=== PATIENT | female | born 1925 | race Caucasian/White ===

== ENCOUNTER 2016-04-18 23:06 | Emergency (ER) | payer OTHER ==
[2016-04-18 23:19] VITALS: TEMP 97.7; BMI 24.2
[2016-04-19] MEDS ORDERED: MECLIZINE HCL 25 MG TABLET (FP) PO STA (00:09)
--- NOTE | 2016-04-19 00:09 | PDOC ---
History of Present Illness - General History Source: Patient Exam Limitations: No Limitations - History of Present Illness Initial Comments: 04/19/16 00:21 The patient is a 89 year old female with significant past medical history of hypertension who presents to the ED from home with 2 days of lightheadedness and dizziness. Patient describes her dizziness as the room is spinning. She denies any headache, diaphoresis, SOB, chest pain, shoulder pain, arm pain, jaw pain, nausea, and vomiting. Patient also denies falling or syncopal episode. She denies any sick contacts or recent travels. As per daughter, at bedside, patient is prescribed 160mg of valsartan, but instead the patient cuts it in half and takes 80 mg. The patient denies fever, chills, cough, abdominal pain and diarrhea. Allergies: niacin Social History: No alcohol, tobacco, or drug use reported. Past Surgical History: cholecystectomy PCP: Dr. Jennifer Raymond <Pamela Lyons - Last Filed: 04/19/16 01:24> - General History Source: Patient <Miko Valdes - Last Filed: 04/19/16 04:03> - General Chief Complaint: Blood Pressure Problem Stated Complaint: BLOOD PRESSURE PROBLEM Time Seen by Provider: 04/19/16 00:05 Past History <Pamela Lyons - Last Filed: 04/19/16 01:24> - Past Medical History HTN: Yes - Surgical History Cholecystectomy: Yes - Psycho/Social/Smoking Cessation Hx Suicidal Ideation: No Smoking History: Never smoked Have you smoked in the past 12 months: No Information on smoking cessation initiated: No Hx Alcohol Use: No Drug/Substance Use Hx: No <Miko Valdes - Last Filed: 04/19/16 04:03> - Past Medical History Allergies/Adverse Reactions: Allergies Allergy/AdvReac Type Severity Reaction Status Date / Time niacin Allergy Verified 04/18/16 23:15 Home Medications: Ambulatory Orders Valsartan [Diovan] 80 mg PO DAILY 04/18/16 Review of Systems - Review of Systems Able to Perform ROS?: Yes Comments:: 04/19/16 00:21 CONSTITUTIONAL: Absent: fever, chills, diaphoresis, generalized weakness, malaise, loss of appetite HEENT: Absent: rhinorrhea, nasal congestion, throat pain, throat swelling, difficulty swallowing, mouth swelling, ear pain, eye pain, visual Changes CARDIOVASCULAR: +lightheadedness Absent: chest pain, syncope, palpitations, irregular heart rate , peripheral edema RESPIRATORY: Absent: cough, shortness of breath, dyspnea with exertion, orthopnea, wheezing, stridor, hemoptysis GASTROINTESTINAL: Absent: abdominal pain, abdominal distension, nausea, vomiting, diarrhea, constipation, melena, hematochezia GENITOURINARY: Absent: dysuria, frequency, urgency, hesitancy, hematuria, flank pain, genital pain MUSCULOSKELETAL: Absent: myalgia, arthralgia, joint swelling SKIN: Absent: rash, itching, pallor NEUROLOGIC: +dizziness Absent: headache, focal weakness or paresthesias, unsteady gait, seizure, mental status changes, bladder or bowel incontinence <Pamela Lyons - Last Filed: 04/19/16 01:24> *Physical Exam - Vital Signs Last Vital Signs Temp Pulse Resp BP Pulse Ox 97.7 F 63 14 169/96 97 04/18/16 23:16 04/19/16 00:02 04/18/16 23:16 04/19/16 00:02 04/18/16 23:16 - Physical Exam Comments: 04/19/16 00:21 GENERAL: Well developed, well nourished. Awake and alert. No acute distress. HEENT: Normocephalic, atraumatic. PERRLA, EOMI. No conjunctival pallor. Sclera are non- icteric. Moist mucous membranes. Oropharynx is clear. NECK: Supple. Full ROM. No JVD. Carotid pulses 2+ and symmetric, without bruits. No thyromegaly. No lymphadenopathy. CARDIOVASCULAR: Regular rate and rhythm. No murmurs, rubs, or gallops. Distal pulses are 2+ and symmetric. PULMONARY: No evidence of respiratory distress. Lungs clear to auscultation bilaterally. No wheezing, rales or rhonchi. ABDOMINAL: Soft. Non-tender. Non-distended. No rebound or guarding. No organomegaly. Normoactive bowel sounds. MUSCULOSKELETAL Normal range of motion at all joints. No bony deformities or tenderness. No CVA tenderness. EXTREMITIES: No cyanosis. No clubbing. No edema. No calf tenderness. SKIN: Warm and dry. Normal capillary refill. No rashes. No jaundice. NEUROLOGICAL: Alert, awake, appropriate. Cranial nerves 2-12 intact. Moving all extremities. No gross focal neurological deficits. PSYCHIATRIC: Cooperative. Good eye contact. Appropriate mood and affect. <Pamela Lyons - Last Filed: 04/19/16 01:24> - Vital Signs Last Vital Signs Temp Pulse Resp BP Pulse Ox 97.7 F 63 14 169/96 97 04/18/16 23:16 04/19/16 00:02 04/18/16 23:16 04/19/16 00:02 04/18/16 23:16 <Miko Valdes - Last Filed: 04/19/16 04:03> ED Treatment Course - RADIOLOGY Radiograph Interpretation: 04/19/16 01:24 EXAM: CT brain without contrast Reviewed by Imaging radiation officer: FINDINGS: Age-appropriate involutional changes. Chronic microvascular changes in the cerebral white matter. 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 Correlate with symptoms. If prior scans are available I can perform a comparative interpretation to help determine if this infarct is recent or not. No bleed. No visible mass. No shift or herniation. - Medications Given in the ED: ED Medications Discontinued Medications Generic Name Dose Route Start Last Admin Trade Name Freq PRN Reason Stop Dose Admin Meclizine HCl 25 mg 04/19/16 00:09 04/19/16 00:20 Antivert - PO 04/19/16 00:10 25 mg ONCE STA Administration <Pamela Lyons - Last Filed: 04/19/16 01:24> - LABORATORY CBC & Chemistry Diagram: 04/19/16 01:30 04/19/16 01:50 <Miko Valdes - Last Filed: 04/19/16 04:03> Medical Decision Making - Medical Decision Making 04/19/16 04:02 Dr. Valdes: The scribe's documentation has been prepared under my direction and personally reviewed by me in its entirery. I confirm that the note above accurately reflects all work, treatment, procedures, and medical decision making performed by me. Blood pressure has improved with therapy here in the department. Patient will be discharged follow up with her primary care to discuss continuing use of medication or medication should be changed. <Miko Valdes - Last Filed: 04/19/16 04:03> *DC/Admit/Observation/Transfer - Attestations Scribe Attestion: 04/19/16 00:21 Documentation prepared by Pamela Lyons, acting as medical i d sales for Miko Valdes MD <Pamela yLons - Last Filed: 04/19/16 01:24> - Discharge Dispostion Admit: No <Miko Valdes - Last Filed: 04/19/16 04:03> Diagnosis at time of Disposition: Hypertension Qualifiers: Hypertension type: essential hypertension Qualified Code(s): I10 - Essential ( primary) hypertension - Discharge Dispostion Disposition: HOME Condition at time of disposition: Improved - Referrals Referrals: Jennifer Raymond [Primary Care Provider] - - Patient Instructions Printed Discharge Instructions: DI for High Blood Pressure, How to Monitor Your Blood Pressure at Home
[2016-04-19] MEDS ORDERED: ENALAPRILAT DIHYDRATE 1.25 MG/1 ML VIAL IVPB ONE ×2 (01:30→03:19)
[2016-04-19 02:06] LABS: BASOPHIL 0.6 % (0-2.0); EOSINOPHIL 3.4 % (0-4.5); MCH 29.9 pg (25.7-33.7); MCHC 33.2 g/dl (32.0-36.0); MEAN PLT VOLUME 7.5 fl (7.5-11.1); NEUTROPHILS 67.1 % (42.8-82.8); PLATELET COUNT 127 K/MM3 (134-434); RDW 14.9 % (11.6-15.6); WHITE BLOOD COUNT 4.8 K/mm3 (4.0-10.0)
[2016-04-19 02:31] LABS: ALBUMIN 3.2 g/dl (3.4-5.0); ANION GAP 7 (8-16); BILIRUBIN,TOTAL 0.4 mg/dL (0.2-1.0); CALCIUM 8.4 mg/dL (8.5-10.1); CO2 29 mmol/L (21-32); CREATININE 0.8 mg/dL (0.55-1.02); GLUCOSE,RANDOM 96 mg/dL (74-106); SGOT/AST 19 U/L (15-37); SGPT/ALT 17 U/L (12-78); TOT PROT 6.3 g/dl (6.4-8.2)
[2016-04-19 02:34] LABS: ALK PHOS 81 U/L (45-117); TROPONIN I < 0.02 ng/ml (0.00-0.05)
[2016-04-19 03:19] VITALS: PULSE 82
[2016-04-19] MEDS ORDERED: ENALAPRILAT DIHYDRATE 2.5 MG/2 ML VIAL IVPB ONE (03:21)
[2016-04-19] MEDS ORDERED: hydrALAZINE HCL 20 MG/ML VIAL IVPUSH ONE (03:22)
[2016-04-19] MEDS ORDERED: hydrALAZINE HCL 20 MG/ML VIAL ONE (03:23)
[2016-04-19 03:48] VITALS: BP 158/76
== END 2016-04-19 04:11 | disposition home or self-care (01) ==
LOC: JER 23:06
PROC: 3E033GC Introduction of Other Therapeutic Substance into Peripheral Vein, Percutaneous Approach (ICD-10-PCS; principal; 2016-04-18)
DX: I10 Essential (primary) hypertension (principal)
CPT/HCPCS: 36415; 70450-TC; 80053; 82550; 84484; 85025; 96374; 96375; 99282-25

== ENCOUNTER 2016-11-16 14:30 | Emergency (ER) | payer OTHER ==
[2016-11-16 15:00] VITALS: TEMP 98.2; BMI 19.8
--- NOTE | 2016-11-16 16:19 | PDOC ---
History of Present Illness - General Chief Complaint: Blood Pressure Problem Stated Complaint: HTN Time Seen by Provider: 11/16/16 15:38 - History of Present Illness Initial Comments: 11/16/16 16:12 89F w/ hx of HTN on valsartan presenting with lightheadedness. Pt reports episodes of lightheadedness upon standing up for several months, most recently today. She went to her PCP (Dr. Raymond) several days ago, and the pt was noted to have a BP in the 170s/90s. Her PCP did not change her BP meds in the last several months or during the last appointment. 11/16/16 16:19 11/16/16 16:23 Past History - Past Medical History Allergies/Adverse Reactions: Allergies Allergy/AdvReac Type Severity Reaction Status Date / Time niacin Allergy Verified 11/16/16 14:50 Home Medications: Ambulatory Orders Valsartan [Diovan] 160 mg PO DAILY 04/18/16 Zolpidem Tartrate [Ambien] 10 mg PO DAILY 11/16/16 HTN: Yes Comment:: 11/16/16 16:19 PMH: HTN Meds: valsartan 160mg qd Allergies: niacin social Hx: denies toxic habits - Surgical History Appendectomy: Yes Cholecystectomy: Yes - Immunization History Immunization Up to Date: Yes - Psycho/Social/Smoking Cessation Hx Suicidal Ideation: No Smoking History: Never smoked Have you smoked in the past 12 months: No Information on smoking cessation initiated: No Hx Alcohol Use: No Drug/Substance Use Hx: No Substance Use Type: None Review of Systems - Review of Systems Comments:: 11/16/16 16:20 GENERAL: No fever, chills, night sweats, or weakness. HEAD, EYES, EARS, NOSE AND THROAT: +blurry vision, no ear pain, or sore throat CARDIOVASCULAR: No chest pain or palpitations RESPIRATORY: No cough, wheezing, or hemoptysis. GASTROINTESTINAL: No nausea, vomiting, diarrhea, constipation, or blood in the stool. GENITOURINARY: No dysuria, frequency, or urgency MUSCULOSKELETAL: No joint or muscle swelling or pain. SKIN: No rashes or pruritis ENDOCRINE: No increased thirst. No abnormal weight change NEUROLOGIC: + headache, + dizziness, no loss of consciousness, or change in strength/sensation. *Physical Exam - Vital Signs Last Vital Signs Temp Pulse Resp BP Pulse Ox 98.2 F 56 L 17 181/94 93 L 11/16/16 14:51 11/16/16 14:51 11/16/16 14:51 11/16/16 14:51 11/16/16 14:51 - Physical Exam Comments: 11/16/16 16:22 GENERAL: Awake, alert, and fully oriented, in no acute distress HEAD: normocephalic, atraumatic HEENT: PERRLA, EOMI, sclera anicteric, conjunctiva clear, hearing grossly normal , nares patent, oropharynx clear without exudate, moist mucosa NECK: Normal ROM, supple, no lymphadenopathy, JVD, or masses HEART: Regular rate and rhythm, normal S1 and S2, no murmurs, rubs or gallops, peripheral pulses normal and equal bilaterally. LUNGS: CTAB, no wheezing, no rales ABDOMEN: Soft, nontender, nondistended, normoactive bowel sounds. No guarding, no rebound. No masses EXTREMITIES: Normal range of motion, 1+ edema in lower extremities. SKIN: Warm, dry, no rashes or lesions noted. NEUROLOGICAL: Cranial nerves II through XII grossly intact. Normal speech, no focal sensorimotor deficits ED Treatment Course - LABORATORY CBC & Chemistry Diagram: 11/16/16 16:50 11/16/16 16:50 Medical Decision Making - Medical Decision Making 11/16/16 16:23 89F w/ hx of HTN on valsartan presenting with lightheadedness for past several months. CBC: platelets 130 CMP: glucose of 67, K of 5.1 UA: 1+ blood, no evidence of UTI CXR: no acute pulmonary or cardiac pathology EKG: sinus bradycardia Repeat BP still elevated to 190/90, so given 80 of valsartan. 11/16/16 18:57 *DC/Admit/Observation/Transfer Diagnosis at time of Disposition: Pre-syncope - Discharge Dispostion Disposition: HOME Condition at time of disposition: Stable Admit: No - Patient Instructions Additional Instructions: Labs and imaging showed that your lightheadedness was not due to any cardiac, pulmonary, or electrolyte problem. Please follow up with your PCP within 1 week to adjust your BP medications. If you experience any concerning symptoms such as severe headache, chest pain, SOB, nausea and vomiting, return to the ED.
[2016-11-16 17:04] LABS: BASOPHIL 0.7 % (0-2.0); EOSINOPHIL 3.2 % (0-4.5); MCHC 33.6 g/dl (32.0-36.0); MEAN CELL VOLUME 92.2 fl (80-96); NEUTROPHILS 59.7 % (42.8-82.8); PLATELET COUNT 134 K/MM3 (134-434); RDW 14.9 % (11.6-15.6)
--- NOTE | 2016-11-16 17:04 | PDOC ---
Attending Attestation - Resident Resident Name: Anjel Grider - ED Attending Attestation I have performed the following: I have examined & evaluated the patient, The case was reviewed & discussed with the resident, I agree w/resident's findings & plan, Exceptions are as noted - HPI HPI: 11/16/16 17:00 Agree with the resident's HPI as documented in the electronic medical record. - Physicial Exam PE: 11/16/16 17:00 Agree with the resident's physical examination as documented in the electronic medical record. - Medical Decision Making 11/16/16 17:01 89-year-old female with history of hypertension presents the emergency department with elevated blood pressure and feeling lightheaded today. Differential diagnosis includes but is not limited to: Poorly controlled hypertension, atypical presentation of ACS, near syncope, electrolyte abnormality, anemia, toxic/metabolic derangement, infection. Plan: 1. EKGshows sinus bradycardia at 56 bpm with normal axis, intervals and no acute ST segment changes 2. Chest x-ray 3. Labs 4. Urine analysis 5. Observe and reevaluate
[2016-11-16 17:27] LABS: URINE APPEARANCE CLEAR; URINE BILIRUBIN NEGATIVE (NEGATIVE); URINE BLOOD 1+ (NEGATIVE); URINE COLOR STRAW; URINE GLUCOSE (UA) NEGATIVE (NEGATIVE); URINE KETONE NEGATIVE (NEGATIVE); URINE LEUK ESTERASE NEGATIVE (NEGATIVE); URINE NITRITE NEGATIVE (NEGATIVE); URINE PROTEIN NEGATIVE (NEGATIVE); URINE UROBILINOGEN NEGATIVE mg/dL (0.2-1.0)
[2016-11-16 17:30] LABS: ALBUMIN 3.4 g/dl (3.4-5.0); ANION GAP 5 (8-16); CALCIUM 8.8 mg/dL (8.5-10.1); CO2 33 mmol/L (21-32); CREATININE 0.7 mg/dL (0.55-1.02); GLUCOSE,RANDOM 67 mg/dL (74-106); SGOT/AST 21 U/L (15-37)
[2016-11-16 17:32] LABS: URINE BACTERIA RARE /hpf (NONE SEEN); URINE RBC 1 /hpf (0-3); URINE WBC 1 /hpf (3-5)
[2016-11-16 17:39] LABS: ALK PHOS 78 U/L (45-117); BILIRUBIN,TOTAL 0.5 mg/dL (0.2-1.0); SGPT/ALT 19 U/L (12-78); TOT PROT 6.6 g/dl (6.4-8.2)
[2016-11-16] MEDS ORDERED: VALSARTAN 80 MG TABLET (UD) PO ONE (18:56)
--- NOTE | 2016-11-16 19:28 | PDOC ---
*Physical Exam - Vital Signs Last Vital Signs Temp Pulse Resp BP Pulse Ox 98.2 F 61 17 191/99 93 L 11/16/16 18:53 11/16/16 18:52 11/16/16 18:52 11/16/16 18:52 11/16/16 18:52 ED Treatment Course - LABORATORY CBC & Chemistry Diagram: 11/16/16 16:50 11/16/16 16:50 - ADDITIONAL ORDERS Additional order review: Laboratory Results 11/16/16 11/16/16 16:58 16:50 Sodium 143 Potassium 5.1 D Chloride 105 Carbon Dioxide 33 H Anion Gap 5 L BUN 17 Creatinine 0.7 Creat Clearance w eGFR > 60 Random Glucose 67 L D Calcium 8.8 Total Bilirubin 0.5 D AST 21 ALT 19 Alkaline Phosphatase 78 Total Protein 6.6 Albumin 3.4 Urine Color Straw Urine Appearance Clear Urine pH 8.0 Urine Protein Negative Urine Glucose (UA) Negative Urine Ketones Negative Urine Blood 1+ H Urine Nitrite Negative Urine Bilirubin Negative Urine Urobilinogen Negative Ur Leukocyte Esterase Negative Urine RBC 1 Urine WBC 1 Ur Epithelial Cells Rare Urine Bacteria Rare 11/16/16 16:50 RBC 3.98 MCV 92.2 MCHC 33.6 RDW 14.9 MPV 8.0 Neutrophils % 59.7 Lymphocytes % 27.2 D Monocytes % 9.2 Eosinophils % 3.2 Basophils % 0.7 Medical Decision Making - Medical Decision Making Patient was signed out to me in stable condition with cardiac enzymes pending. 11/16/16 19:25 Cardiac enzymes undetectable and patient asymptomatic but blood pressures still elevated with systolics 190-200. Cr. 0.7 and completely asymptomatic so high suspicion of her baseline HTN being extreme. Will give Hydralizine 15 mg IV and recheck blood pressure. 11/16/16 21:19 Patient tolerated 15 IV well. Will recheck BP in 15 minutes. 11/16/16 21:36 Pressures 157/97, will recheck in 15 minutes. 11/16/16 21:50 Pressure repeated was 146/70s patient still asymptomatic. HR slightly elevated to 80s. Patient will follow up with Dr. Raymond tomorrow. 11/16/16 22:21 *DC/Admit/Observation/Transfer Diagnosis at time of Disposition: Pre-syncope, Asymptomatic hypertensive urgency - Discharge Dispostion Disposition: HOME Condition at time of disposition: Stable - Referrals Referrals: Jennifer Raymond [Primary Care Provider] - - Patient Instructions Additional Instructions: Labs and imaging showed that your lightheadedness was not due to any cardiac, pulmonary, or electrolyte problem. Please follow up with your PCP within tomorrow to adjust your BP medications. We gave hydralizine ( another bp medication) here to help lower yoour BP a little more because ti was still high. If you experience any concerning symptoms such as severe headache, chest pain, SOB, nausea and vomiting, return to the ED. - Post Discharge Activity - Attestations Physician Attestion: Dr. Hector Alonzo attest this note. 11/16/16 22:21
[2016-11-16 19:39] LABS: CPK 49 IU/L (26-192); TROPONIN I < 0.02 ng/ml (0.00-0.05)
[2016-11-16] MEDS ORDERED: VALSARTAN 80 MG TABLET (UD) ONE (19:39)
[2016-11-16] MEDS ORDERED: hydrALAZINE HCL 20 MG/ML VIAL ONE (21:25)
[2016-11-16] MEDS ORDERED: hydrALAZINE HCL 20 MG/ML VIAL IVPUSH ONE ×2 (21:25→22:25)
[2016-11-16 21:44] VITALS: PULSE 65
[2016-11-16 22:17] VITALS: BP 155/97
--- NOTE | 2016-11-17 12:30 | EKG ---
Test Reason : Blood Pressure : / mmHG Vent. Rate : 051 BPM Atrial Rate : 051 BPM P-R Int : 150 ms QRS Dur : 074 ms QT Int : 432 ms P-R-T Axes : 028 -22 046 degrees QTc Int : 398 ms SINUS BRADYCARDIA MODERATE VOLTAGE CRITERIA FOR LVH, MAY BE NORMAL VARIANT WHEN COMPARED WITH ECG OF 16-NOV-2016 14:50, NO SIGNIFICANT CHANGE WAS FOUND Confirmed by MD POORNIMA, RUDOLPH ([id number]) on 11/17/2016 12:30:05 PM Referred By: Confirmed By:RUDOLPH NOGUERA MD
--- NOTE | 2016-11-20 19:06 | EKG ---
Test Reason : Blood Pressure : / mmHG Vent. Rate : 051 BPM Atrial Rate : 051 BPM P-R Int : 150 ms QRS Dur : 080 ms QT Int : 440 ms P-R-T Axes : 007 -22 044 degrees QTc Int : 405 ms SINUS BRADYCARDIA MODERATE VOLTAGE CRITERIA FOR LVH, MAY BE NORMAL VARIANT BORDERLINE ECG NO PREVIOUS ECGS AVAILABLE Confirmed by SILVA PINTO MD ([id number]) on 11/20/2016 7:05:56 PM Referred By: Confirmed By:SILVA PINTO MD
== END 2016-11-16 22:58 | disposition home or self-care (01) ==
LOC: JER 14:30
PROC: 3E033GC Introduction of Other Therapeutic Substance into Peripheral Vein, Percutaneous Approach (ICD-10-PCS; principal; 2016-11-16)
DX: R55 Syncope and collapse (principal)
CPT/HCPCS: 36415; 71010-TC; 80053; 81003; 81015; 84484; 85025; 93005; 93010; 99284-25

== ENCOUNTER 2017-09-21 12:17 | Observation (INO) | payer OTHER ==
--- NOTE | 2017-09-21 12:59 | PDOC ---
Attending Attestation - HPI HPI: 09/21/17 13:23 The patient is a 89 year old female accompanied with her daughter, with a significant past medical history of hypertension, who presents to the emergency department for evaluation of left hip pain s/p unwitnessed fall.The patient reports moderate left hip pain, left elbow pain, and posterior head pain. As per EMS, the patients daughter found the patient on the floor at 8am. The patient denies loss of consciousness. The patient reports falling on her left side as she was turning. She states she was able to ambulate after the fall, but has difficulty bearing weight. As per EMS, the patient was tachycardic at 135 bpm. The patient denies use of blood thinners, neck pain, chest pain, shortness of breath, fever, chills, nausea, vomiting, and any urinary/bowel symptoms. Allergies: Niacin Social History: No reported alcohol, cigarette, or drug use. Surgical History: Appendectomy, cholecystectomy, and . <Shauna Hoyt - Last Filed: 09/21/17 13:23> - Resident Resident Name: Hi Crisostomo - ED Attending Attestation I have performed the following: I have examined & evaluated the patient, The case was reviewed & discussed with the resident, I agree w/resident's findings & plan, Exceptions are as noted - Physicial Exam PE: GENERAL: Awake, alert, and fully oriented, in no acute distress HEAD: Small occipital hematoma. EYES: PERRLA, EOMI, sclera anicteric, conjunctiva clear ENT: Auricles normal inspection, hearing grossly normal, nares patent, oropharynx clear without exudates. Moist mucosa NECK: Normal ROM, supple, no lymphadenopathy, JVD, or masses LUNGS: Breath sounds equal, clear to auscultation bilaterally. No wheezes, and no crackles HEART: Regular rate and rhythm, normal S1 and S2, no murmurs, rubs or gallops ABDOMEN: Soft, nontender, normoactive bowel sounds. No guarding, no rebound. No masses EXTREMITIES: +Tenderness to L hip, +FROM. Remainder of extremities with normal range of motion, no edema. No clubbing or cyanosis. No cords, erythema, or tenderness NEUROLOGICAL: Cranial nerves II through XII grossly intact. Normal speech. Motor and sensation intact. SKIN: Warm, Dry, normal turgor, no rashes or lesions noted. - Medical Decision Making Pt s/p unwitnessed fall, noted to have tachycardia to 135 by EMS. Will obtain L elbow and hip XR, CTH to r/o ICH, and labs. Likely admission. <Jaci Pennington - Last Filed: 09/21/17 13:39> Attestations - Attestations Documentation prepared by Shauna Hoyt, acting as medical assisting instructor for Jaci Pennington MD. <Shauna Hoyt - Last Filed: 09/21/17 13:23>
[2017-09-21] MEDS ORDERED: ACETAMINOPHEN 325 MG TABLET (FP) PO ONE (13:03)
[2017-09-21] MEDS ORDERED: ACETAMINOPHEN 325 MG TABLET (FP) ONE (13:08)
--- NOTE | 2017-09-21 13:08 | PDOC ---
History of Present Illness - General Chief Complaint: Injury Stated Complaint: FALL Time Seen by Provider: 09/21/17 12:37 History Source: Patient Exam Limitations: No Limitations - History of Present Illness Initial Comments: 09/21/17 13:02 Patient is an 89F with history of HTN here today complaining of a fall. She states that she was reaching to get her coffee when she slipped and fell. She denies LOC, neck pain, chest pain, and taking blood thinners. The fall was unwitnessed. Patient endorses pain on the left side of her head, left elbow, and left hip. She states that she was able to stand after the incident, but was not able to walk. EMS reports that she had a run of SVT while on their monitor. EKG given shows sinus tachycardia with frequent PVCs and rate of 135. Patient denies back pain, right leg/arm pain, and pain with urination. Past History - Past Medical History Allergies/Adverse Reactions: Allergies Allergy/AdvReac Type Severity Reaction Status Date / Time niacin Allergy Verified 11/16/16 14:50 Home Medications: Ambulatory Orders Zolpidem Tartrate [Ambien] 5 mg PO HS 11/16/16 Olmesartan/Amlodipin/Hcthiazid [Tribenzor 40-5-12.5 mg Tablet] 1 each PO DAILY 09/21/17 COPD: No HTN: Yes - Surgical History Appendectomy: Yes Cholecystectomy: Yes - Immunization History Immunization Up to Date: Yes - Suicide/Smoking/Psychosocial Hx Smoking History: Never smoked Have you smoked in the past 12 months: No Information on smoking cessation initiated: No Hx Alcohol Use: No Drug/Substance Use Hx: No Substance Use Type: None Review of Systems - Review of Systems Comments:: 09/21/17 13:08 GENERAL/CONSTITUTIONAL: No fever or chills. HEAD, EYES, EARS, NOSE AND THROAT: No change in vision. No sore throat. CARDIOVASCULAR: No chest pain or shortness of breath RESPIRATORY: No cough, wheezing, or hemoptysis. GASTROINTESTINAL: No nausea, vomiting, diarrhea or constipation. GENITOURINARY: No dysuria, frequency, or change in urination. MUSCULOSKELETAL: +hip pain. No neck or back pain. SKIN: No rash NEUROLOGIC: + headache. No vertigo, loss of consciousness, or change in strength /sensation. ENDOCRINE: No increased thirst. No abnormal weight change HEMATOLOGIC/LYMPHATIC: No anemia, easy bleeding, or history of blood clots. ALLERGIC/IMMUNOLOGIC: No hives or skin allergy. *Physical Exam - Vital Signs Last Vital Signs Temp Pulse Resp BP Pulse Ox 98.3 F 63 17 138/73 96 09/21/17 12:37 09/21/17 12:37 09/21/17 12:37 09/21/17 12:37 09/21/17 12:37 - Physical Exam Comments: 09/21/17 13:09 GENERAL: Awake, alert, and fully oriented, in no acute distress HEAD: No signs of trauma, normocephalic, atraumatic EYES: PERRLA, EOMI, sclera anicteric, conjunctiva clear ENT: Auricles normal inspection, hearing grossly normal, nares patent, oropharynx clear without exudates. Moist mucosa NECK: Normal ROM, supple, no lymphadenopathy, JVD, or masses, no midline tenderness BACK: No signs of trauma, no midline tenderness L HIP: No signs of trauma, no abnormal rotation or shortening, moves without increase in pain, tender to palpation in lateral hip L ARM: Tender to palpation on left elbow, 3x2cm hematoma, full rom, neurovascularly intact distal to injury LUNGS: No distress, speaks full sentences, clear to auscultation bilaterally HEART: Regular rate and rhythm, normal S1 and S2, no murmurs, rubs or gallops, peripheral pulses normal and equal bilaterally. ABDOMEN: Soft, nontender, normoactive bowel sounds. No guarding, no rebound. No masses EXTREMITIES: Normal inspection, Normal range of motion, no edema. No clubbing or cyanosis. NEUROLOGICAL: Cranial nerves II through XII grossly intact. Normal speech, no focal sensorimotor deficits SKIN: Warm, Dry, normal turgor, no rashes or lesions noted. ED Treatment Course - LABORATORY CBC & Chemistry Diagram: 09/21/17 13:23 09/21/17 13:23 - RADIOLOGY Radiology Studies Ordered: Category Date Time Status HEAD CT WITHOUT CONTRAST [CT] Stat CT Scan 09/21/17 12:56 Ordered CHEST X-RAY PORTABLE* [RAD] Stat Radiology 09/21/17 12:56 Ordered ELBOW-LEFT [RAD] Stat Radiology 09/21/17 12:56 Ordered HIP & PELVIS-LEFT [RAD] Stat Radiology 09/21/17 12:56 Ordered Medical Decision Making - Medical Decision Making 09/21/17 13:10 Patient is 89F with history of HTN here today with fall. Fall unwitnessed, concerned for syncope given report of SVT and EKG showing rate of 135 from the field. Vital signs now normal and stable. DDx includes, but is not limited to: syncope, mechanical fall, arrhythmia, ACS. Will do cardiac workup with CT of head, x-ray of elbow/hip. Will likely require admission. Neck cleared by [facility]. 09/21/17 15:10 Laboratory Tests 09/21/17 09/21/17 09/21/17 13:23 13:23 14:50 WBC 8.4 Hgb 12.4 Plt Count 145 Potassium 5.4 H BUN 24 H Creatinine 0.9 Troponin I < 0.02 Urine Nitrite Negative Ur Leukocyte Esterase Negative CBC normal. CMP shows mild hyperkalemia. Kidney function normal. UA negative. 09/21/17 15:[address] negative. 09/21/17 15:13 EKG shows normal sinus rhythm with rate of 68. No st elevations/depressions. No significant t-wave abnormalities. Normal intervals. Normal axis. 09/21/17 16:15 CT head normal. 09/21/17 16:39 X-rays negative, admitted to [facility] obs. *DC/Admit/Observation/Transfer Diagnosis at time of Disposition: Fall - Discharge Dispostion Condition at time of disposition: Stable Decision to Admit order: Yes - Referrals - Patient Instructions - Post Discharge Activity
[2017-09-21 13:33] LABS: BASO % 0.8 % (0-2.0); EOS % 1.8 % (0-4.5); HEMATOCRIT 37.3 % (32.4-45.2); HEMOGLOBIN 12.4 GM/dL (10.7-15.3); LYMPH % 13.4 % (8-40); MCH 30.4 pg (25.7-33.7); MCHC 33.3 g/dl (32.0-36.0); MEAN CELL VOLUME 91.3 fl (80-96); MEAN PLT VOLUME 8.3 fl (7.5-11.1); MONO % 7.3 % (3.8-10.2); NEUT % 76.7 % (42.8-82.8); PLATELET COUNT 145 K/MM3 (134-434); RBC 4.09 M/mm3 (3.60-5.2); RDW 14.5 % (11.6-15.6); WHITE BLOOD COUNT 8.4 K/mm3 (4.0-10.0)
[2017-09-21 13:48] LABS: INR 0.94 (0.82-1.09); PROTHROMBIN TIME (PATIENT) 10.6 SEC (9.7-13.0)
[2017-09-21 14:10] LABS: ALBUMIN 3.4 g/dl (3.4-5.0); ANION GAP 5 (8-16); BLOOD UREA NITROGEN 24 mg/dL (7-18); CALCIUM 8.9 mg/dL (8.5-10.1); CHLORIDE 105 mmol/L (98-107); CO2 30 mmol/L (21-32); GLUCOSE,RANDOM 68 mg/dL (74-106); SODIUM 140 mmol/L (136-145)
[2017-09-21 14:17] LABS: ALK PHOS 71 U/L (45-117); BILIRUBIN,TOTAL 0.4 mg/dL (0.2-1.0); CREATININE 0.9 mg/dL (0.55-1.02); SGPT/ALT 24 U/L (12-78); TOT PROT 6.7 g/dl (6.4-8.2)
[2017-09-21 14:19] LABS: MAGNESIUM 1.9 mg/dL (1.8-2.4); POTASSIUM 5.4 mmol/L (3.5-5.1); SGOT/AST 31 U/L (15-37)
[2017-09-21 14:56] LABS: URINE APPEARANCE CLEAR; URINE BILIRUBIN NEGATIVE (<2.0 mg/dL); URINE COLOR STRAW; URINE GLUCOSE (UA) NEGATIVE (NEGATIVE); URINE KETONE NEGATIVE (NEGATIVE); URINE LEUK ESTERASE NEGATIVE (NEGATIVE); URINE NITRITE NEGATIVE (NEGATIVE); URINE PROTEIN NEGATIVE (NEGATIVE); URINE UROBILINOGEN NEGATIVE mg/dL (0.2-1.0)
[2017-09-21 15:07] LABS: EPI CELLS RARE /HPF (FEW); URINE MUCUS RARE
--- NOTE | 2017-09-21 17:11 | HP ---
CHIEF COMPLAINT: fall at home this morning PCP: HISTORY OF PRESENT ILLNESS: Patient is an 89 year old female with a significant past medical history of hypertension. She comes to the ED today via EMS after sustaining a fall at home when making coffee. Patient lives with her daughter and was in her usual state of health when she woke up this morning. She denies any difficulty sleeping but does take ambien 5mg occasionally. Patient was making coffee early this morning, awaiting the arrival of her ANIMAL CARE ATTENDANT. When she turned around suddenly, she slipped and fell landing on her left side. She did not feel weak or dizzy before falling nor did she have chest pain but fell on the kitchen floor and was unable to get herself up. She was alone as her daughter left for work at 6am. She hit the left side of her head, left elbow and left hip. Her aide arrived at 9am and climbed through the window to help her up off the floor. Patient states she was on the floor for approximately an hour. EMS reports that patient had a run of SVT while on their monitor. EKG in ER shows sinus tachycardia, sinus rhythm with PVCs. Patient denies pain, dizziness or chest pain. In the ED she was sitting in the chair, in no acute distress. Denies chest pain , urinary frequency or shortness of breath. Patient endorses bilateral knee weakness that is chronic. She is currently undergoing physical therapy approximately twice per week for bilateral knee weakness secondary to arthritis. She states she has been feeling weak and feels that she needs more help at home as well as more therapy to help her ambulate. ER course was notable for: (1) glucose 68 (2) negative head ct (3) K. 5.4 Recent Travel: PAST MEDICAL HISTORY: hypertension PAST SURGICAL HISTORY: Social History: Smoking:n/a Alcohol: n/a Drugs: n/a Family History: Allergies niacin Allergy (Verified 11/16/16 14:50) HOME MEDICATIONS: Home Medications Medication Instructions Recorded Zolpidem Tartrate [Ambien] 5 mg PO HS 11/16/16 Olmesartan/Amlodipin/Hcthiazid 1 each PO DAILY 09/21/17 [Tribenzor 40-5-12.5 mg Tablet] PHYSICAL EXAMINATION Vital Signs - 24 hr 09/21/17 12:37 Temperature 98.3 F Pulse Rate 63 Respiratory 17 Rate Blood Pressure 138/73 O2 Sat by Pulse 96 Oximetry (%) GENERAL: Awake, alert, and fully oriented, in no acute distress. Facial symmetry , clear speech HEAD: Normal with no signs of trauma. EYES: Pupils equal, round and reactive to light, extraocular movements intact, sclera anicteric, conjunctiva clear. No lid lag. EARS, NOSE, THROAT: Ears normal, nares patent, oropharynx clear without exudates. Moist mucous membranes. NECK: Normal range of motion, supple without lymphadenopathy, JVD, or masses. LUNGS: Breath sounds equal, clear to auscultation bilaterally. No wheezes, and no crackles. No accessory muscle use. 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 No hepatomegaly or splenomegaly. MUSCULOSKELETAL: Normal range of motion at all joints. No bony deformities or tenderness. No CVA tenderness. UPPER EXTREMITIES: No peripheral edema. left elbo with purple bruise LOWER EXTREMITIES: no calf tenderness. No peripheral edema. NEUROLOGICAL: Normal speech. Normal gait. PSYCHIATRIC: Cooperative. Good eye contact. Appropriate mood and affect. SKIN: Warm, dry, normal turgor, no rashes or lesions noted, normal capillary refill. Laboratory Results - last 24 hr 09/21/17 09/21/17 09/21/17 13:23 13:23 13:23 WBC 8.4 RBC 4.09 Hgb 12.4 Hct 37.3 MCV 91.3 MCH 30.4 MCHC 33.3 RDW 14.5 Plt Count 145 MPV 8.3 Absolute Neuts (auto) 6.4 Neutrophils % 76.7 D Lymphocytes % 13.4 D Monocytes % 7.3 Eosinophils % 1.8 Basophils % 0.8 Nucleated RBC % 0 PT with INR 10.60 INR 0.94 Sodium 140 Potassium 5.4 H Chloride 105 Carbon Dioxide 30 Anion Gap 5 L BUN 24 H Creatinine 0.9 Creat Clearance w eGFR 58.95 Random Glucose 68 L Calcium 8.9 Magnesium 1.9 Total Bilirubin 0.4 AST 31 ALT 24 Alkaline Phosphatase 71 Creatine Kinase 93 Troponin I < 0.02 Total Protein 6.7 Albumin 3.4 Urine Color Urine Appearance Urine pH Ur Specific [place] Urine Protein Urine Glucose (UA) Urine Ketones Urine Blood Urine Nitrite Urine Bilirubin Urine Urobilinogen Ur Leukocyte Esterase Urine WBC (Auto) Urine RBC (Auto) Ur Epithelial Cells Urine Mucus 09/21/17 14:50 WBC RBC Hgb Hct MCV MCH MCHC RDW Plt Count MPV Absolute Neuts (auto) Neutrophils % Lymphocytes % Monocytes % Eosinophils % Basophils % Nucleated RBC % PT with INR INR Sodium Potassium Chloride Carbon Dioxide Anion Gap BUN Creatinine Creat Clearance w eGFR Random Glucose Calcium Magnesium Total Bilirubin AST ALT Alkaline Phosphatase Creatine Kinase Troponin I Total Protein Albumin Urine Color Straw Urine Appearance Clear Urine pH 8.0 Ur Specific [place] 1.005 Urine Protein Negative Urine Glucose (UA) Negative Urine Ketones Negative Urine Blood 1+ H Urine Nitrite Negative Urine Bilirubin Negative Urine Urobilinogen Negative Ur Leukocyte Esterase Negative Urine WBC (Auto) 1 Urine RBC (Auto) <1 Ur Epithelial Cells Rare Urine Mucus Rare ASSESSMENT/PLAN: Patient is an 89 year old female with a significant past medical history of hypertension. She comes to the ED today via EMS after sustaining a fall at home with injury to her left elbow. Neuro: Syncope/Fall. Unclear etiology. Rule out cardiac etiology. Trend trops, monitor on tele. Orthostatics. Head CT negative. Femur and left hip xray pending. Hold cardiac meds. Cardiology consulted. Card: Rule our cardiac cause of syncope Trend trops, repeat EKG, monitor on tele Hypertension, chronic On Tribenzor (amlodopine, hctz, olmesartan). NF, medication NF, here. Cardiology consulted. orthostatics. FEN NS @ 50cc x 24 hours mild hyperkalemia, monitor low salt diet Prophy: LOS <48 hours likely, hold anticoagulation Protonix Physical therapy full code Hospitalist Screening - Colonoscopy Questionnaire Colonoscopy Questionnaire: Colonoscopy Questionnaire
[2017-09-21] MEDS: ACETAMINOPHEN 325 MG TABLET (FP) PO PRN (20:32)
[2017-09-21] MEDS ORDERED: ZOLPIDEM TARTRATE 5 MG TABLET PO PRN (22:00)
[2017-09-21] MEDS ORDERED: MELATONIN 1 MG TABLET PO ONE (22:00)
[2017-09-21] MEDS ORDERED: SODIUM CHLORIDE 1,000 ML IV SCH (22:00)
[2017-09-21 23:04] LABS: URINE APPEARANCE CLEAR; URINE BILIRUBIN NEGATIVE (<2.0 mg/dL); URINE COLOR LTYELLOW; URINE GLUCOSE (UA) NEGATIVE (NEGATIVE); URINE KETONE NEGATIVE (NEGATIVE); URINE LEUK ESTERASE TRACE (NEGATIVE); URINE NITRITE NEGATIVE (NEGATIVE); URINE PROTEIN NEGATIVE (NEGATIVE); URINE UROBILINOGEN NEGATIVE mg/dL (0.2-1.0)
[2017-09-21 23:05] VITALS: BMI 27.3
[2017-09-21 23:11] LABS: EPI CELLS FEW /HPF (FEW); URINE BACTERIA RARE /hpf (NONE SEEN); URINE MUCUS RARE
[2017-09-22] MEDS: ACETAMINOPHEN 325 MG TABLET (FP) PO PRN (03:51)
[2017-09-22 07:10] LABS: BASO % 0.7 % (0-2.0); EOS % 4.4 % (0-4.5); HEMATOCRIT 34.3 % (32.4-45.2); HEMOGLOBIN 11.5 GM/dL (10.7-15.3); LYMPH % 17.2 % (8-40); MCH 30.7 pg (25.7-33.7); MCHC 33.6 g/dl (32.0-36.0); MEAN CELL VOLUME 91.4 fl (80-96); MEAN PLT VOLUME 7.6 fl (7.5-11.1); MONO % 7.5 % (3.8-10.2); NEUT % 70.2 % (42.8-82.8); PLATELET COUNT 124 K/MM3 (134-434); RBC 3.75 M/mm3 (3.60-5.2); RDW 14.4 % (11.6-15.6); WHITE BLOOD COUNT 5.8 K/mm3 (4.0-10.0)
[2017-09-22 07:44] LABS: ALBUMIN 3.2 g/dl (3.4-5.0); ANION GAP 3 (8-16); BLOOD UREA NITROGEN 21 mg/dL (7-18); CALCIUM 8.7 mg/dL (8.5-10.1); CHLORIDE 108 mmol/L (98-107); CHOLESTEROL 210 mg/dL (50-200); CO2 31 mmol/L (21-32); CREATININE 0.8 mg/dL (0.55-1.02); GLUCOSE,RANDOM 87 mg/dL (74-106); MAGNESIUM 1.7 mg/dL (1.8-2.4); POTASSIUM 4.8 mmol/L (3.5-5.1); SGOT/AST 21 U/L (15-37); SGPT/ALT 20 U/L (12-78); SODIUM 142 mmol/L (136-145)
[2017-09-22 07:48] LABS: ALK PHOS 67 U/L (45-117); BILIRUBIN,TOTAL 0.6 mg/dL (0.2-1.0); HDL CHOLESTEROL 80 mg/dL (40-60); TOT PROT 6.3 g/dl (6.4-8.2); TRIGLYCERIDES 112 mg/dL (35-160)
--- NOTE | 2017-09-22 09:35 | EKG ---
Test Reason : Blood Pressure : / mmHG Vent. Rate : 068 BPM Atrial Rate : 068 BPM P-R Int : 140 ms QRS Dur : 074 ms QT Int : 390 ms P-R-T Axes : 034 -28 043 degrees QTc Int : 414 ms NORMAL SINUS RHYTHM POOR R WAVE PROGRESSION LEFTWARD AXIS ABNORMAL ECG Confirmed by PARTH LUCAS MD ([id number]) on 09/22/2017 9:35:14 AM Referred By: Confirmed By:PARTH LUCAS MD
[2017-09-22] MEDS ORDERED: amLODIPine BESYLATE 5 MG TABLET (FP) PO SCH (10:00)
[2017-09-22] MEDS: PANTOPRAZOLE 40 MG TABLET (FP) PO SCH (10:12)
[2017-09-22] MEDS: HYDROCHLOROTHIAZIDE 12.5 MG CAPSULE (FP) PO SCH (10:12)
[2017-09-22] MEDS ORDERED: MAGNESIUM 1GM/D5W 100ML - 100 ML IVPB IVPB ONE (10:22)
--- NOTE | 2017-09-22 12:19 | CON.CARD ---
Consult Consult Specialty:: Cardiology Referred by:: Hospitalist Medicine Reason for Consultation:: s/p fall, ? syncope - History of Present Illness Chief Complaint: Post fall History of Present Illness: Patient is an 89 year old female with a significant past medical history of hypertension presented for mechanical fall after quickly turning head. She denies prodromal sxs of near or true syncope, chest pain, palpitations, orthopnea, PND, LE edema, no response to carotid sinus massages. EMS reports that patient had a run of SVT while on their monitor. EKG in ER shows sinus tachycardia, sinus rhythm with PVCs. Patient reports bilateral knee weakness referable to DJD causing gait disturbance undergoing PT. - History Source History Provided By: Patient Limitations to Obtaining History: No Limitations - Past Medical History Cardio/Vascular: Yes: HTN ...: No - Alcohol/Substance Use Hx Alcohol Use: No - Smoking History Smoking history: Never smoked Have you smoked in the past 12 months: No Home Medications - Allergies Allergies/Adverse Reactions: Allergies Allergy/AdvReac Type Severity Reaction Status Date / Time niacin Allergy Verified 11/16/16 14:50 - Home Medications Home Medications: Ambulatory Orders Zolpidem Tartrate [Ambien] 5 mg PO HS 11/16/16 Olmesartan/Amlodipin/Hcthiazid [Tribenzor 40-5-12.5 mg Tablet] 1 each PO DAILY 09/21/17 Vital Signs: Vital Signs Temperature 98.2 F 09/22/17 11:00 Pulse Rate 69 09/22/17 11:00 Respiratory Rate 20 09/22/17 11:00 Blood Pressure 137/74 09/22/17 11:00 O2 Sat by Pulse Oximetry (%) 96 09/22/17 11:00 Constitutional: Yes: No Distress, Calm Neck: Yes: Supple, Other (No response to carotid sinus massage) Respiratory: Yes: Regular, CTA Bilaterally Gastrointestinal: Yes: Normal Bowel Sounds, Soft Cardiovascular: Yes: Regular Rate and Rhythm JVD: No Carotid Bruit: No Heart Sounds: Yes: S1, S2 Edema: No - Other Data Labs, Other Data: CBC, BMP 09/22/17 06:00 09/22/17 06:00 INR, PTT INR 0.94 (0.82-1.09) 09/21/17 13:23 Troponin, BNP 09/21/17 09/21/17 09/22/17 13:23 19:30 00:00 Troponin I < 0.02 < 0.02 < 0.02 Troponin, BNP 09/21/17 09/21/17 09/22/17 13:23 19:30 00:00 Troponin I < 0.02 < 0.02 < 0.02 NSR @ 68 PRWP Imaging - Results Chest X-ray: Report Reviewed (NAD) Problem List - Problems (1) Gait disturbance Code(s): R26.9 - UNSPECIFIED ABNORMALITIES OF GAIT AND MOBILITY (2) Fall Code(s): W19.XXXA - UNSPECIFIED FALL, INITIAL ENCOUNTER Qualifiers: Encounter type: initial encounter Qualified Code(s): W19.XXXA - Unspecified fall, initial encounter (3) Hypertension Code(s): I10 - ESSENTIAL (PRIMARY) HYPERTENSION Qualifiers: Hypertension type: essential hypertension Qualified Code(s): I10 - Essential (primary) hypertension Assessment/Plan 1. Post mechanical fall, denies syncope 2. Hypertension 3. Gait disturbance 4. Hyperkalemia since resolved P:1. director of teaching and learning to observe for sustained arrhythmia, check orthostatic VS , echocardiogram to assess ventricular and valve fxn 2. Agree with slowly re-introducing Tribenzor components as hemodynamics tolerate and hyperkalemia resolves 3. PT for gait training 4. Thank you for consultative opportunity
--- NOTE | 2017-09-22 16:35 | PN ---
Physical Exam: SUBJECTIVE: Patient seen and examined OBJECTIVE: Vital Signs Period Temp Pulse Resp BP Sys/Nicole Pulse Ox Last 24 Hr 97.0 F-98.2 F 59-71 17-20 130-169/46-96 94-98 GENERAL: Awake, alert, and fully oriented, in no acute distress. Facial symmetry , clear speech HEAD: Normal with no signs of trauma. EYES: Pupils equal, round and reactive to light, extraocular movements intact, sclera anicteric, conjunctiva clear. No lid lag. EARS, NOSE, THROAT: Ears normal, nares patent, oropharynx clear without exudates. Moist mucous membranes. NECK: Normal range of motion, supple without lymphadenopathy, JVD, or masses. LUNGS: Breath sounds equal, clear to auscultation bilaterally. No wheezes, and no crackles. No accessory muscle use. HEART: sinus rhythm on cafeteria monitor ABDOMEN: Soft, nontender, not distended, normoactive bowel sounds, no guarding, no rebound, no masses. No hepatomegaly or splenomegaly. MUSCULOSKELETAL: Normal range of motion at all joints. No bony deformities or tenderness. No CVA tenderness. UPPER EXTREMITIES: No peripheral edema. left elbo with purple bruise LOWER EXTREMITIES: no calf tenderness. No peripheral edema. NEUROLOGICAL: Normal speech. Normal gait. PSYCHIATRIC: Cooperative. Good eye contact. Appropriate mood and affect. SKIN: Warm, dry, normal turgor, no rashes or lesions noted, normal capillary refill. Laboratory Results - last 24 hr 09/21/17 09/21/17 09/21/17 19:30 22:20 22:50 WBC RBC Hgb Hct MCV MCH MCHC RDW Plt Count MPV Absolute Neuts (auto) Neutrophils % Lymphocytes % Monocytes % Eosinophils % Basophils % Nucleated RBC % Sodium Potassium Chloride Carbon Dioxide Anion Gap BUN Creatinine Creat Clearance w eGFR POC Glucometer 142 Random Glucose Hemoglobin A1c % Calcium Magnesium Total Bilirubin AST ALT Alkaline Phosphatase Creatine Kinase Troponin I < 0.02 Total Protein Albumin Triglycerides Cholesterol Total LDL Cholesterol HDL Cholesterol Urine Color Ltyellow Urine Appearance Clear Urine pH 7.0 Ur Specific [place] 1.013 Urine Protein Negative Urine Glucose (UA) Negative Urine Ketones Negative Urine Blood 2+ H Urine Nitrite Negative Urine Bilirubin Negative Urine Urobilinogen Negative Ur Leukocyte Esterase Trace Urine WBC (Auto) 5 Urine RBC (Auto) 5 Ur Epithelial Cells Few Urine Bacteria Rare Urine Mucus Rare 09/22/17 09/22/17 09/22/17 00:00 06:00 06:00 WBC 5.8 RBC 3.75 Hgb 11.5 Hct 34.3 MCV 91.4 MCH 30.7 MCHC 33.6 RDW 14.4 Plt Count 124 L MPV 7.6 Absolute Neuts (auto) 4.1 Neutrophils % 70.2 Lymphocytes % 17.2 D Monocytes % 7.5 Eosinophils % 4.4 D Basophils % 0.7 Nucleated RBC % 0 Sodium 142 Potassium 4.8 Chloride 108 H Carbon Dioxide 31 Anion Gap 3 L BUN 21 H Creatinine 0.8 Creat Clearance w eGFR > 60 POC Glucometer Random Glucose 87 Hemoglobin A1c % Calcium 8.7 Magnesium 1.7 L Total Bilirubin 0.6 AST 21 ALT 20 Alkaline Phosphatase 67 Creatine Kinase Troponin I < 0.02 Total Protein 6.3 L Albumin 3.2 L Triglycerides 112 Cholesterol 210 H Total LDL Cholesterol 112 H HDL Cholesterol 80 H Urine Color Urine Appearance Urine pH Ur Specific [place] Urine Protein Urine Glucose (UA) Urine Ketones Urine Blood Urine Nitrite Urine Bilirubin Urine Urobilinogen Ur Leukocyte Esterase Urine WBC (Auto) Urine RBC (Auto) Ur Epithelial Cells Urine Bacteria Urine Mucus 09/22/17 09/22/17 09/22/17 06:00 06:00 06:26 WBC RBC Hgb Hct MCV MCH MCHC RDW Plt Count MPV Absolute Neuts (auto) Neutrophils % Lymphocytes % Monocytes % Eosinophils % Basophils % Nucleated RBC % Sodium Potassium Chloride Carbon Dioxide Anion Gap BUN Creatinine Creat Clearance w eGFR POC Glucometer 95 Random Glucose Hemoglobin A1c % 5.4 Calcium Magnesium Total Bilirubin AST ALT Alkaline Phosphatase Creatine Kinase 69 Troponin I Total Protein Albumin Triglycerides Cholesterol Total LDL Cholesterol HDL Cholesterol Urine Color Urine Appearance Urine pH Ur Specific [place] Urine Protein Urine Glucose (UA) Urine Ketones Urine Blood Urine Nitrite Urine Bilirubin Urine Urobilinogen Ur Leukocyte Esterase Urine WBC (Auto) Urine RBC (Auto) Ur Epithelial Cells Urine Bacteria Urine Mucus Active Medications Generic Name Dose Route Start Last Admin Trade Name Freq PRN Reason Stop Dose Admin Acetaminophen 650 mg 09/21/17 20:22 09/22/17 03:51 Tylenol - PO 650 mg Q4H PRN Administration HEADACHE Atorvastatin Calcium 20 mg 09/22/17 22:00 Lipitor - PO HS [facility] Hydrochlorothiazide 12.5 mg 09/22/17 10:00 09/22/17 10:12 Hctz - PO 12.5 mg DAILY MOSES Administration Sodium Chloride 1,000 mls @ 50 mls/hr 09/21/17 22:00 09/21/17 22:07 Normal Saline - IV 09/22/17 21:48 50 mls/hr ASDIR MOSES Administration Pantoprazole Sodium 40 mg 09/22/17 10:00 09/22/17 10:12 Protonix - PO 40 mg DAILY MOSES Administration Zolpidem Tartrate 5 mg 09/22/17 10:58 Ambien - PO HS PRN INSOMNIA ASSESSMENT/PLAN: Patient is an 89 year old female with a significant past medical history of hypertension. She comes to the ED via EMS after sustaining a fall at home with injury to her left elbow. Neuro: Syncope/Fall. Unclear etiology. Head CT negative, no neuro deficits noted. No LOC loss during fall. Has generalized knee weakness that is chronic. No fracture on serial imaging. Card: Rule our cardiac cause of syncope Troponins negative. Monitor on tele. Rule out cardiac etiology> having bursts of tachycardia with ambulation on cafeteria monitor. Troponins negative. Not orthostatic. TSH in a.m. Hypertension, chronic On Tribenzor (amlodopine, hctz, olmesartan). NF, medication, will restart amlodopine and hctz. HLD, started on Lipitor FEN NS @ 50cc x 24 hours BMP low salt diet Prophy: LOS <48 hours likely, hold anticoagulation Protonix Physical therapy full code
[2017-09-22] MEDS: ZOLPIDEM TARTRATE 5 MG TABLET PO PRN (21:19)
[2017-09-22] MEDS: ATORVASTATIN CA 20 MG TABLET (FP) PO SCH (21:19)
[2017-09-23] MEDS: ACETAMINOPHEN 325 MG TABLET (FP) PO PRN ×2 (08:21→20:02)
[2017-09-23] MEDS: PANTOPRAZOLE 40 MG TABLET (FP) PO SCH (09:54)
[2017-09-23] MEDS: HYDROCHLOROTHIAZIDE 12.5 MG CAPSULE (FP) PO SCH (09:54)
[2017-09-23] MEDS ORDERED: amLODIPine BESYLATE 2.5 MG TABLET (FP) PO SCH (10:00)
--- NOTE | 2017-09-23 13:07 | PN ---
Progress Note, Physician History of Present Illness: Telemetry shows short bursts of PAT, ambulates with assistance. - Current Medication List Current Medications: Active Medications Acetaminophen (Tylenol -) 650 mg PO Q4H PRN PRN Reason: HEADACHE Last Admin: 09/23/17 08:21 Dose: 650 mg Amlodipine Besylate (Norvasc -) 2.5 mg PO DAILY [facility] Last Admin: 09/23/17 09:54 Dose: 2.5 mg Atorvastatin Calcium (Lipitor -) 20 mg PO HS [facility] Last Admin: 09/22/17 21:19 Dose: 20 mg Hydrochlorothiazide (Hctz -) 12.5 mg PO DAILY [facility] Last Admin: 09/23/17 09:54 Dose: 12.5 mg Pantoprazole Sodium (Protonix -) 40 mg PO DAILY [facility] Last Admin: 09/23/17 09:54 Dose: 40 mg Zolpidem Tartrate (Ambien -) 5 mg PO HS PRN PRN Reason: INSOMNIA Last Admin: 09/22/17 21:19 Dose: 5 mg - Objective Vital Signs: Vital Signs Temperature 98.4 F 09/23/17 10:00 Pulse Rate 72 09/23/17 10:00 Respiratory Rate 20 09/23/17 10:00 Blood Pressure 156/91 09/23/17 10:00 O2 Sat by Pulse Oximetry (%) 96 09/23/17 10:00 Constitutional: Yes: No Distress, Calm, Thin Neck: Yes: Supple Cardiovascular: Yes: Regular Rate and Rhythm Respiratory: Yes: Regular, CTA Bilaterally Gastrointestinal: Yes: Normal Bowel Sounds, Soft Edema: No Labs: CBC, BMP 09/22/17 06:00 09/22/17 06:00 INR, PTT INR 0.94 (0.82-1.09) 09/21/17 13:23 Problem List - Problems (1) Gait disturbance Code(s): R26.9 - UNSPECIFIED ABNORMALITIES OF GAIT AND MOBILITY (2) Fall Code(s): W19.XXXA - UNSPECIFIED FALL, INITIAL ENCOUNTER Qualifiers: Encounter type: initial encounter Qualified Code(s): W19.XXXA - Unspecified fall, initial encounter (3) Hypertension Code(s): I10 - ESSENTIAL (PRIMARY) HYPERTENSION Qualifiers: Hypertension type: essential hypertension Qualified Code(s): I10 - Essential (primary) hypertension (4) Paroxysmal atrial tachycardia Code(s): I47.1 - SUPRAVENTRICULAR TACHYCARDIA Assessment/Plan 1. Post mechanical fall, denies syncope 2. Hypertension 3. Gait disturbance 4. Hyperkalemia since resolved 4. Paroxysmal atrial tachycardia P:1. night monitor to observe for sustained arrhythmia, echocardiogram to assess ventricular and valve fxn 2. Start Toprol XL 25 qd, d/c Norvasc and HCTZ, continue Lipitor, start ASA 81 qd 3. PT for gait training
[2017-09-23] MEDS: LIDOCAINE 5% TOPICAL PATCH TP SCH ×2 (15:02→17:00)
[2017-09-23] MEDS: ASPIRIN COATED 81 MG TABLET.EC PO SCH (15:02)
[2017-09-23] MEDS: metoPROLOL SUCCINATE 25 MG TAB.SR.24H (FP) PO SCH (15:45)
--- NOTE | 2017-09-23 17:23 | PN ---
Physical Exam: SUBJECTIVE: Patient seen and examined. Reports feeling better today but having difficulty with ambulation. No chest pain, not short of breath. OBJECTIVE: Started on toprol for episodes of tachycardia with ambulation Lidoderm patches for pain on left hip and left arm s/p fall Poor ambulation, will need PT tomorrow as well as eval for possible SNF vs. increase in current PT patient currently undergoes (twice per week) Vital Signs Period Temp Pulse Resp BP Sys/Nicole Pulse Ox Last 24 Hr 98.3 F-98.6 F 56-74 18-20 121-161/72-92 94-96 GENERAL: Awake, alert, and fully oriented, in no acute distress. Facial symmetry , clear speech HEAD: Normal with no signs of trauma. EYES: Pupils equal, round and reactive to light, extraocular movements intact, sclera anicteric, conjunctiva clear. No lid lag. EARS, NOSE, THROAT: Ears normal, nares patent, oropharynx clear without exudates. Moist mucous membranes. NECK: Normal range of motion, supple without lymphadenopathy, JVD, or masses. LUNGS: Breath sounds equal, clear to auscultation bilaterally. No wheezes, and no crackles. No accessory muscle use. HEART: sinus rhythm on cafeteria monitor - episodes of tachycardia with ambulation ABDOMEN: Soft, nontender, not distended, normoactive bowel sounds, no guarding, no rebound, no masses. No hepatomegaly or splenomegaly. UPPER EXTREMITIES: No peripheral edema. left elbow with purple bruise s/p fall LOWER EXTREMITIES: no calf tenderness. No peripheral edema, left hip pain, no bruise NEUROLOGICAL: Normal speech. Normal gait. Laboratory Results - last 24 hr 09/23/17 06:00 TSH 1.61 Active Medications Generic Name Dose Route Start Last Admin Trade Name Freq PRN Reason Stop Dose Admin Acetaminophen 650 mg 09/21/17 20:22 09/23/17 08:21 Tylenol - PO 650 mg Q4H PRN Administration HEADACHE Aspirin 81 mg 09/23/17 13:30 09/23/17 15:02 Ecotrin - PO 81 mg DAILY MOSES Administration Atorvastatin Calcium 20 mg 09/22/17 22:00 09/22/17 21:19 Lipitor - PO 20 mg HS MOSES Administration Lidocaine 1 patch 09/23/17 13:30 09/23/17 15:02 Lidoderm Patch - TP 1 patch DAILY MOSES Administration Lidocaine 1 patch 09/23/17 16:30 09/23/17 17:00 Lidoderm Patch - TP 1 patch DAILY MOSES Administration Metoprolol Succinate 25 mg 09/23/17 13:30 09/23/17 15:45 Toprol Xl - PO 25 mg DAILY MOSES Administration Miscellaneous 1 each 09/23/17 22:00 Lidoderm Patch Removal MC DAILY@2200 MOSES Miscellaneous 1 each 09/23/17 22:00 Lidoderm Patch Removal MC DAILY@2200 MOSES Pantoprazole Sodium 40 mg 09/22/17 10:00 09/23/17 09:54 Protonix - PO 40 mg DAILY MOSES Administration Zolpidem Tartrate 5 mg 09/22/17 10:58 09/22/17 21:19 Ambien - PO 5 mg HS PRN Administration INSOMNIA ASSESSMENT/PLAN: Patient is an 89 year old female with a significant past medical history of hypertension. She comes to the ED via EMS after sustaining a fall at home with injury to her left elbow. Neuro: Syncope/Fall. Unclear etiology, likely mechanical fall. Head CT negative, no neuro deficits noted. No LOC loss during fall. Has generalized knee weakness that is chronic. No fracture on serial imaging. Evaluate for rehab. Needs PT evaluation. Card: Rule our cardiac cause of syncope: Troponins negative. Monitor on tele. Rule out cardiac etiology> having bursts of tachycardia with ambulation on cafeteria monitor. Started on Toprol xl. Monitor response. TSH wnl Hypertension: On Tribenzor (amlodopine, hctz, olmesartan) home meds>has been discontinued here. Started on Toprol. HLD: started on Lipitor FEN tolerating PO BMP in a.m. low salt diet Prophy: LOS <48 hours likely, hold anticoagulation. Protonix Physical therapy for possible rehab vs. increase in home care and/or increase in physical therapy patient currently receives (twice weekly) full code Visit type - Emergency Visit Emergency Visit: Yes ED Registration Date: 09/21/17 Care time: The patient presented to the Emergency Department on the above date and was hospitalized for further evaluation of their emergent condition. - New Patient This patient is new to me today: No - Critical Care Critical Care patient: No - Discharge Referral Referred to [facility] Med P.C.: No
[2017-09-23] MEDS: ATORVASTATIN CA 20 MG TABLET (FP) PO SCH (21:34)
[2017-09-23] MEDS: ZOLPIDEM TARTRATE 5 MG TABLET PO PRN (21:34)
[2017-09-23] MEDS ORDERED: LIDOCAINE PATCH REMOVAL MC SCH ×3 (22:00)
[2017-09-24 07:04] LABS: ALBUMIN 2.9 g/dl (3.4-5.0); ANION GAP 6 (8-16); BLOOD UREA NITROGEN 20 mg/dL (7-18); CALCIUM 8.1 mg/dL (8.5-10.1); CHLORIDE 106 mmol/L (98-107); CO2 30 mmol/L (21-32); GLUCOSE,RANDOM 88 mg/dL (74-106); MAGNESIUM 1.7 mg/dL (1.8-2.4); POTASSIUM 4.5 mmol/L (3.5-5.1); SODIUM 142 mmol/L (136-145)
[2017-09-24 07:09] LABS: ALK PHOS 62 U/L (45-117); BILIRUBIN,TOTAL 0.5 mg/dL (0.2-1.0); CREATININE 0.9 mg/dL (0.55-1.02); SGOT/AST 19 U/L (15-37); SGPT/ALT 18 U/L (12-78); TOT PROT 5.9 g/dl (6.4-8.2)
[2017-09-24 07:14] LABS: BASO % 0.9 % (0-2.0); EOS % 6.1 % (0-4.5); HEMOGLOBIN 11.1 GM/dL (10.7-15.3); LYMPH % 21.5 % (8-40); MCH 30.6 pg (25.7-33.7); MCHC 33.7 g/dl (32.0-36.0); MEAN CELL VOLUME 90.8 fl (80-96); MEAN PLT VOLUME 7.7 fl (7.5-11.1); MONO % 9.4 % (3.8-10.2); NEUT % 62.1 % (42.8-82.8); PLATELET COUNT 116 K/MM3 (134-434); RBC 3.63 M/mm3 (3.60-5.2); RDW 14.1 % (11.6-15.6)
[2017-09-24] MEDS ORDERED: MAGNESIUM OXIDE 400 MG TABLET (FP) PO ONE (07:35)
[2017-09-24] MEDS: PANTOPRAZOLE 40 MG TABLET (FP) PO SCH (09:09)
[2017-09-24] MEDS: metoPROLOL SUCCINATE 25 MG TAB.SR.24H (FP) PO SCH (09:09)
[2017-09-24] MEDS: ASPIRIN COATED 81 MG TABLET.EC PO SCH (09:09)
[2017-09-24] MEDS: LIDOCAINE 5% TOPICAL PATCH TP SCH ×2 (09:09→09:13)
--- NOTE | 2017-09-24 10:06 | PN ---
Progress Note, Physician History of Present Illness: Telemetry shows short bursts of PAT, reports left hip discomfort, ambulating with PT and walker assistance. - Current Medication List Current Medications: Active Medications Acetaminophen (Tylenol -) 650 mg PO Q4H PRN PRN Reason: HEADACHE Last Admin: 09/23/17 20:02 Dose: 650 mg Aspirin (Ecotrin -) 81 mg PO DAILY [facility] Last Admin: 09/24/17 09:09 Dose: 81 mg Atorvastatin Calcium (Lipitor -) 20 mg PO HS [facility] Last Admin: 09/23/17 21:34 Dose: 20 mg Lidocaine (Lidoderm Patch -) 1 patch TP DAILY [facility] Last Admin: 09/24/17 09:09 Dose: 1 patch Lidocaine (Lidoderm Patch -) 1 patch TP DAILY [facility] Last Admin: 09/24/17 09:13 Dose: 1 patch Metoprolol Succinate (Toprol Xl -) 25 mg PO DAILY [facility] Last Admin: 09/24/17 09:09 Dose: 25 mg Miscellaneous (Lidoderm Patch Removal) 1 each MC DAILY@2200 [facility] Last Admin: 09/23/17 22:39 Dose: 1 each Miscellaneous (Lidoderm Patch Removal) 1 each MC DAILY@2200 [facility] Last Admin: 09/23/17 22:40 Dose: 1 each Pantoprazole Sodium (Protonix -) 40 mg PO DAILY [facility] Last Admin: 09/24/17 09:09 Dose: 40 mg Zolpidem Tartrate (Ambien -) 5 mg PO HS PRN PRN Reason: INSOMNIA Last Admin: 09/23/17 21:34 Dose: 5 mg - Objective Vital Signs: Vital Signs Temperature 98.6 F 09/24/17 09:23 Pulse Rate 72 09/24/17 09:23 Respiratory Rate 18 09/24/17 09:23 Blood Pressure 120/56 09/24/17 09:23 O2 Sat by Pulse Oximetry (%) 97 09/24/17 08:02 Constitutional: Yes: No Distress, Calm, Thin Neck: Yes: Supple Cardiovascular: Yes: Regular Rate and Rhythm Respiratory: Yes: Regular, CTA Bilaterally Gastrointestinal: Yes: Normal Bowel Sounds, Soft Edema: No Labs: CBC, BMP 09/24/17 05:45 09/24/17 05:45 INR, PTT INR 0.94 (0.82-1.09) 09/21/17 13:23 Problem List - Problems (1) Gait disturbance Code(s): R26.9 - UNSPECIFIED ABNORMALITIES OF GAIT AND MOBILITY (2) Fall Code(s): W19.XXXA - UNSPECIFIED FALL, INITIAL ENCOUNTER Qualifiers: Encounter type: initial encounter Qualified Code(s): W19.XXXA - Unspecified fall, initial encounter (3) Hypertension Code(s): I10 - ESSENTIAL (PRIMARY) HYPERTENSION Qualifiers: Hypertension type: essential hypertension Qualified Code(s): I10 - Essential (primary) hypertension (4) Paroxysmal atrial tachycardia Code(s): I47.1 - SUPRAVENTRICULAR TACHYCARDIA Assessment/Plan 1. Post mechanical fall, denies syncope 2. Hypertension 3. Gait disturbance 4. Hyperkalemia since resolved 4. Paroxysmal atrial tachycardia P:1. patient monitor to observe for sustained arrhythmia, f/u echocardiogram to assess ventricular and valve fxn 2. Started Toprol XL 25 qd and ASA 81 qd, d/c Norvasc and HCTZ, continue Lipitor 20 qhs 3. PT for gait training
--- NOTE | 2017-09-24 15:20 | PN ---
Progress Note (short form) - Note Progress Note: Subjective: The patient was seen and examined at the bedside, she has no complaints at this time. She would like to go home Current Medications Generic Name Dose Route Start Last Admin Trade Name Aaliyah PRN Reason Stop Dose Admin Acetaminophen 650 mg 09/21/17 20:22 09/23/17 20:02 Tylenol - PO 650 mg Q4H PRN Administration HEADACHE Aspirin 81 mg 09/23/17 13:30 09/24/17 09:09 Ecotrin - PO 81 mg DAILY [facility] Administration Atorvastatin Calcium 20 mg 09/22/17 22:00 09/23/17 21:34 Lipitor - PO 20 mg HS [facility] Administration Lidocaine 1 patch 09/23/17 13:30 09/24/17 09:09 Lidoderm Patch - TP 1 patch DAILY [facility] Administration Lidocaine 1 patch 09/23/17 16:30 09/24/17 09:13 Lidoderm Patch - TP 1 patch DAILY [facility] Administration Metoprolol Succinate 25 mg 09/23/17 13:30 09/24/17 09:09 Toprol Xl - PO 25 mg DAILY [facility] Administration Miscellaneous 1 each 09/23/17 22:00 09/23/17 22:39 Lidoderm Patch Removal MC 1 each DAILY@2200 [facility] Administration Miscellaneous 1 each 09/23/17 22:00 09/23/17 22:40 Lidoderm Patch Removal MC 1 each DAILY@2200 [facility] Administration Pantoprazole Sodium 40 mg 09/22/17 10:00 09/24/17 09:09 Protonix - PO 40 mg DAILY [facility] Administration Zolpidem Tartrate 5 mg 09/22/17 10:58 09/23/17 21:34 Ambien - PO 5 mg HS PRN Administration INSOMNIA Objective: Vital Signs Period Temp Pulse Resp BP Sys/Nicole Pulse Ox Last 24 Hr 98.2 F-99.0 F 58-82 16-20 119-151/41-75 96-97 Physical Exam: General: NAD Lungs: CTA bilaterally Heart: RRR, S1S2 Abd: Soft, non-tender, non-distended. Normoactive bowel sounds Ext: Warm, well-perfused. 2+ DP/PT bilaterally CBCD WBC 5.0 K/mm3 (4.0-10.0) 09/24/17 05:45 RBC 3.63 M/mm3 (3.60-5.2) 09/24/17 05:45 Hgb 11.1 GM/dL (10.7-15.3) 09/24/17 05:45 Hct 33.0 % (32.4-45.2) 09/24/17 05:45 MCV 90.8 fl (80-96) 09/24/17 05:45 MCHC 33.7 g/dl (32.0-36.0) 09/24/17 05:45 RDW 14.1 % (11.6-15.6) 09/24/17 05:45 Plt Count 116 K/MM3 (134-434) L 09/24/17 05:45 MPV 7.7 fl (7.5-11.1) 09/24/17 05:45 CMP Sodium 142 mmol/L (136-145) 09/24/17 05:45 Potassium 4.5 mmol/L (3.5-5.1) 09/24/17 05:45 Chloride 106 mmol/L (98-107) 09/24/17 05:45 Carbon Dioxide 30 mmol/L (21-32) 09/24/17 05:45 Anion Gap 6 (8-16) L 09/24/17 05:45 BUN 20 mg/dL (7-18) H 09/24/17 05:45 Creatinine 0.9 mg/dL (0.55-1.02) 09/24/17 05:45 Creat Clearance w eGFR 58.95 (>60) 09/24/17 05:45 Random Glucose 88 mg/dL (74-106) 09/24/17 05:45 Calcium 8.1 mg/dL (8.5-10.1) L 09/24/17 05:45 Total Bilirubin 0.5 mg/dL (0.2-1.0) 09/24/17 05:45 AST 19 U/L (15-37) 09/24/17 05:45 ALT 18 U/L (12-78) 09/24/17 05:45 Alkaline Phosphatase 62 U/L (45-117) 09/24/17 05:45 Total Protein 5.9 g/dl (6.4-8.2) L 09/24/17 05:45 Albumin 2.9 g/dl (3.4-5.0) L 07/02/18 05:45 CARDIAC ENZYMES Creatine Kinase 69 IU/L (26-192) 09/22/17 06:00 Troponin I < 0.02 ng/ml (0.00-0.05) 09/22/17 00:00 Microbiology 09/23/17 02:30 Urine - Urine Clean Catch Urine Culture - Final NO GROWTH OBTAINED
--- NOTE | 2017-09-24 15:48 | DS ---
Physical Examination Vital Signs: Vital Signs Temperature 98.6 F 09/24/17 14:00 Pulse Rate 58 L 09/24/17 14:00 Respiratory Rate 16 09/24/17 14:00 Blood Pressure 119/70 09/24/17 14:00 O2 Sat by Pulse Oximetry (%) 97 09/24/17 08:02 Labs: CBC, BMP 09/24/17 05:45 09/24/17 05:45 Discharge Summary Reason For Visit: FALL Current Active Problems Fall (Acute) Gait disturbance (Acute) Paroxysmal atrial tachycardia (Acute) Condition: Improved - Instructions Diet, Activity, Other Instructions: Please return to the ED with new, persistent, or worsening symptoms. Please follow-up with providers as indicated. Referrals: Marco Davidson MD [Staff Physician] - 1 Week Sunny Lema MD [Staff Physician] - 1 Week Disposition: [facility]/HOME HEALTH CARE - Home Medications Comprehensive Discharge Medication List: Ambulatory Orders Zolpidem Tartrate [Ambien] 5 mg PO HS 11/16/16 Acetaminophen [Tylenol .Regular Strength -] 650 mg PO Q4H PRN tablet 09/24/17 Aspirin Coated [Ecotrin -] 81 mg PO DAILY #30 tablet.ec 09/24/17 Atorvastatin Ca [Lipitor] 20 mg PO HS #30 tablet 09/24/17 Lidocaine 5% Patch [Lidoderm -] 1 patch TP DAILY #30 patch 09/24/17 Lidocaine Patch Removal [Lidoderm Patch Removal] 1 each MC DAILY@2200 #0 each Metoprolol Succinate [Toprol XL -] 25 mg PO DAILY #30 tab.sr.24h 09/24/17 - Discharge Referral Referred to [facility] No
[2017-09-24 17:36] VITALS: BP 137/67; PULSE 52; TEMP 99
== END 2017-09-24 20:30 | disposition home health service (06) ==
LOC: JER 12:17 → JERBED 16:39 → J4S 19:45
PROVIDERS: ADMIT Internal Medicine; ATTEND Registered Nurse
DX: I47.1 Supraventricular tachycardia (principal); I10 Essential (primary) hypertension; R26.89 Other abnormalities of gait and mobility; E87.5 Hyperkalemia; W01.0XXA Fall on same level from slipping, tripping and stumbling without subsequent striking against object, initial encounter; Y93.89 Activity, other specified; Y92.030 Kitchen in apartment as the place of occurrence of the external cause; Y99.8 Other external cause status
CPT/HCPCS: 36415; 70450-TC; 71045-TC-FY; 73070-TC-LT-FY; 73523-TC-FY; 80053; 80061; 81003; 81015; 82550; 82962; 83036; 83721; 83735; 84443; 84484; 85025; 85610; 87086; 93005; 93010; 93306-TC; 97116-GP; 97161-GP; 99284-25; G0378; J7030